=== PATIENT | male | born 1965 | race African-American/Black ===

== ENCOUNTER 2020-07-28 12:01 | Emergency (ER) | payer OTHER ==
[2020-07-28 12:56] VITALS: BP 152/90
--- NOTE | 2020-07-28 13:32 | Emergency Department Report ---
Blank Doc - Documentation Documentation: 55-year-old male that presents with generalized abdominal pain with nausea vom iting. Tachycardia in triage. 1- This initial assessment/diagnostic orders/clinical plan/ treatment(s) is/are subject to change based on pt's health status, clinical progression and re- assessment by fellow clinical providers in the ED. Further treatment and workup at subsequent clinical provers discretion. Patient/guardians urged not to elope from ED as their condition may be serious if not clinically assessed and managed. 2-labs with EKG
[2020-07-28 13:38] LABS: INR 1.15 (0.87-1.13); Partial Thromboplastin Time 28.7 Sec. (24.2-36.6)
[2020-07-28 13:45] LABS: Basophils % (Auto) 0.1 % (0.0-1.8); Hematocrit 28.2 % (35.5-45.6); Hemoglobin 9.8 gm/dl (11.8-15.2); Lymphocytes % (Auto) 15.2 % (13.4-35.0); Mean Corpuscular HGB Conc 35 % (32-34); Mean Corpuscular Volume 99 fl (84-94); Monocytes # (Auto) 0.8 K/mm3 (0.0-0.8); Monocytes % (Auto) 11.3 % (0.0-7.3); Platelet Count 111 K/mm3 (140-440); Red Blood Count 2.84 M/mm3 (3.65-5.03); Red Cell Distribution Width 21.3 % (13.2-15.2)
[2020-07-28 13:50] LABS: Alanine Aminotransferase 191 units/L (7-56); Albumin 3.1 g/dL (3.9-5); Blood Urea Nitrogen 6 mg/dL (9-20); Hemolysis Index 2
[2020-07-28 14:03] LABS: BUN/Creatinine Ratio 10
[2020-07-28 14:27] LABS: Bilirubin,Urine NEG (Negative); Blood,Urine SM (Negative); Color,Urine Amber (Yellow); Mucus,Urine 3+ /HPF
--- NOTE | 2020-07-28 17:27 | Emergency Department Report ---
Blank Doc - Documentation Documentation: I did go to the patient's room at 4:46 PM, 4:52 PM, and 5:20 PM and the patient was not in the room. Multiple attempts use to contact the phone number left in the demographics without answer. The patient eloped without me seeing the patient.
--- NOTE | 2020-07-29 18:41 | Electrocardiograph Report ---
[facility] Test Date: 2020-07-28 Test Time: 13:04:17 Pat Name: LIDIA ANGELES Department: Room: Gender: M [employer]: : [id number] Requested By: JACK MORLEY Order Number: [id number] Reading MD: Guzman Cohen Measurements Intervals [place] Rate: 127 P: [place]: QRS: 57 QRSD: 100 T: 2 QT: 330 QTc: 481 Interpretive Statements Rhythm most likely sinus tachycardia, baseline artifact is noted. No previous ECG available for comparison Electronically Signed On 07-29-2020 18:41:05 EDT by Guzman Cohen
== END 2020-07-28 17:26 | disposition left against medical advice (07) ==
LOC: ED 12:01
DX: R10.84 Generalized abdominal pain (principal); R11.2 Nausea with vomiting, unspecified; Z53.21 Procedure and treatment not carried out due to patient leaving prior to being seen by health care provider
CPT/HCPCS: 36415; 80053; 81001; 83690; 85025; 85610; 85730; 93005